=== PATIENT | female | born 1955 | race Hispanic/Latino ===

== ENCOUNTER 2016-12-29 13:14 | Outpatient (CLI) | payer MEDICARE ==
--- NOTE | 2016-12-29 14:00 | XRay Report ---
Right tibia: Pain. There is mild edema of the calf and distal leg which appears more prevalent along the lateral side. No soft tissue calcification and no mass. The tibial tubercle appears irregular raising the possibility of prior surgery. No acute finding. The bony structures otherwise appear generally unremarkable. Impression: Nonspecific soft tissue edema.
== END 2016-12-29 13:15 | disposition home or self-care (01) ==
LOC: SPVIMAG 13:14
PROVIDERS: ATTEND Orthopaedic Surgery Sports Medicine
DX: M79.604 Pain in right leg (principal); R60.0 Localized edema